=== PATIENT | female | born 1985 | race Caucasian/White ===

== ENCOUNTER 2025-05-17 12:42 | Emergency (ER) | payer OTHER, SELFPAY ==
[2025-05-17 13:23] VITALS: BP 137/80; PULSE 86; RESP 20; TEMP 36.6; O2SAT 100; BMI 20.7
[2025-05-17 15:00] VITALS: BP 136/74; PULSE 73; RESP 16; TEMP 36.7; O2SAT 100
[2025-05-17 15:30] VITALS: PULSE 74; O2SAT 100
--- NOTE | 2025-05-17 15:47 | ED_ITS ---
HPI - General Adult General Chief complaint: Urogenital-Female Stated complaint: catheter not draining and needs bag Time Seen by Provider: 05/17/25 15:11 Source: patient Mode of arrival: Ambulatory History of Present Illness HPI narrative: 39-year-old 12 weeks lives in [facility]. Acute urinary retention last night with reportedly 2 L of urine in her bladder. Brooks catheter is placed without difficulty, she was given a leg bag and seemingly minimal instruction otherwise. She was not given an overnight bag, did not understand how to deal with the tubing, was concerned that there was continuous urine in the tubing indicating that it was not draining. On arrival the leg bag was full of clear yellow urine she was not in any distress. Related Data Allergies Allergy/AdvReac Type Severity Reaction Status Date / Time amoxicillin Allergy Rash Verified 05/17/25 15:05 Patient History Social History Smoking Status: Never smoker Smoking Status: Never smoker Exam Initial Vital Signs Initial Vital Signs: Vital Signs Temperature 97.8 F 05/17/25 13:23 Pulse Rate 86 05/17/25 13:23 Respiratory Rate 20 05/17/25 13:23 Blood Pressure 137/80 05/17/25 13:23 Pulse Oximetry 100 05/17/25 13:23 Oxygen Delivery Method Room Air 05/17/25 13:23 General: Alert appropriate in no acute distress Respiratory: Able to speak in full sentences, no obvious respiratory distress Skin: No obvious rashes, warm and dry Neurologic: Grossly intact no obvious asymmetries or abnormalities Psych: appropriate insight and affect, cooperative Bedside ultrasound shows completely empty bladder, Brooks balloon appreciated, active fetus with a heart rate at 165. Clear urine draining appropriately Course Vital Signs Vital signs: Vital Signs - 8 hr 05/17/25 13:23 05/17/25 15:00 Temperature 97.8 F 98.1 F Pulse Rate 86 73 Respiratory Rate 20 16 Blood Pressure 137/80 136/74 Pulse Oximetry 100 100 Oxygen Delivery Method Room Air Medical Decision Making [facility] Narrative Medical decision making narrative: 39-year-old at 12 weeks with the acute urinary retention almost 2 L unclear etiology. She is followed by midwives has a primary care physician with whom she has an appointment in 3 days. No signs of distress. No signs of complications with the urinary catheter. She was given an overnight bag and additional instruction and training in use of a Brooks catheter. She has already discussed the care with her primary care physician and plans to find the underlying etiology for acute urinary retention 12 weeks are planned. At this point there was no indication for admission, additional workup or further consultation here at [facility]. She is safe for discharge Discharge Plan Departure Patient Disposition: Home Clinical Impression: Acute urinary retention, 12 weeks gestation of Instructions: How to Care for Your Brooks Catheter -- Female, DI for Urinary Retention in Women Activity Restrictions/Additional Instructions: Thank you for coming in today Hopefully we were able to provide a bit more education about care and use of your Brooks catheter. You were given an overnight bag which will also be helpful. The catheter itself seems to be positioned appropriately, your baby looks like it is moving and happy. The heartbeat was 165 beats per minute which is perfect. Please do follow up with your primary care physician and OB provider. This is a rather unusual finding and an explanation of a retroflexed uterus does not explain the extent of the acute urinary retention. If you find that you are having new symptoms, other difficulties with the catheter today, new findings or any vaginal discharge that is changing, feel free to return to the emergency department Stand Alone Forms: Patient Portal/API
--- NOTE | 2025-05-17 16:08 | PC.NURSE ---
At this time catheter is draining. Overnight bag given to patient. Education given on how to change from leg bag to overnight bag given. Return demonstration by patient.
[2025-05-17 16:24] VITALS: PULSE 72; O2SAT 96
[2025-05-17 16:25] VITALS: BP 133/83; PULSE 73; O2SAT 99
[2025-05-17 16:28] VITALS: BP 133/83; PULSE 79; RESP 18; TEMP 36.7; O2SAT 99
== END 2025-05-17 16:31 | disposition home or self-care (01) ==
PROVIDERS: Emergency Provider Emergency Medicine
DX: O99.891 Other specified diseases and conditions complicating pregnancy (principal); R33.9 Retention of urine, unspecified; Z3A.12 12 weeks gestation of pregnancy
CPT/HCPCS: 99281